=== PATIENT | female | born 1980 | race Caucasian/White ===

== ENCOUNTER → 2018-04-10 | Outpatient (CLI) | payer BC | LOC: MERGE 08:15 → FIMAGING 08:19 | PROVIDERS: ATTEND Advanced Practice Midwife | DX: O09.522 Supervision of elderly multigravida, second trimester (principal); Z3A.20 20 weeks gestation of pregnancy ==

== ENCOUNTER 2018-08-25 02:35 | Inpatient (IN) | payer BC | END 2018-08-27 12:30 | disposition home or self-care (01) | LOC: FLD 02:35 → FOB 08-26 00:44 ==